=== PATIENT | male | born 1980 | race Caucasian/White ===

== ENCOUNTER 2020-12-28 13:57 | Outpatient (REF) | payer BC, SELFPAY ==
--- NOTE | ~2020-12-28 | XR_ITS ---
EXAMINATION: XR KNEE, LEFT CLINICAL INFORMATION: Pain; question osteoarthritis. COMPARISON: None TECHNIQUE: AP, lateral, tunnel, and sunrise views of the left knee. FINDINGS: Bones and soft tissues are normal. No fracture or dislocation. There is a small joint effusion. Alignment is anatomic. Joint spaces are well maintained. No abnormal soft tissue calcification. XR/XR knee LT 4V IMPRESSION: 1. No left knee fracture, dislocation or unusual degenerative change is seen. 2. There is a small left knee joint effusion.
== END 2020-12-28 13:58 | disposition home or self-care (01) ==
LOC: HO.XRAY 13:57
PROVIDERS: PCP Internal Medicine; Visit Provider Internal Medicine
DX: M25.562 Pain in left knee (principal)
CPT/HCPCS: 73564

== ENCOUNTER 2021-09-05 11:09 | Outpatient (REF) | payer BC, SELFPAY ==
[2021-09-05 13:59] LABS: MANUAL DIFF FLAG NO
[2021-09-05 14:05] LABS: Basophils Absolute Auto 0.1 X10*3/uL (0.0-0.2); Basophils Percent Auto 0.6 % (0-2); Eosinophils Absolute Auto 0.2 X10*3/uL (0.0-0.4); Eosinophils Percent Auto 2.9 % (0-4); Hematocrit 45.6 % (42.0-52.0); Hemoglobin 14.7 g/dl (14.0-18.0); Imm Gran Abs Auto 0.02 X10*3/uL (0.00-0.03); Imm Gran Pct Auto 0.3 % (0.0-0.4); Lymphocytes Percent Auto 25.3 % (20-40); Mean Corpuscular HGB Conc 32.2 g/dl (31.0-36.0); Mean Corpuscular Volume 83.7 fL (80.0-98.0); Mean Platelet Volume 9.7 fL (9.4-12.4); Monocytes Absolute Auto 0.6 X10*3/uL (0.1-1.2); Monocytes Percent Auto 7.3 % (2-11); Neutrophils Percent Auto 63.6 % (45-73); Platelet Count 400 X10*3/uL (160-400); Red Blood Count 5.45 X10*6/uL (4.60-5.80); Red Cell Distribution Width 13.3 % (11.0-16.0); White Blood Count 7.9 X10*3/uL (4.8-10.8)
[2021-09-05 14:31] LABS: Anion Gap 13 (12-20); Blood Urea Nitrogen 19 mg/dL (9-16); C Reactive Protein 0.22 mg/dL (< or = 0.50); Calcium 10.1 mg/dL (8.4-10.2); Carbon Dioxide 29 mmol/L (22-29); Chloride 103 mmol/L (96-108); Estimated Glomerular Filt Rate > 60; Glucose Random 95 mg/dL (60-115); Potassium 4.4 mmol/L (3.3-5.1); Sodium 141 mmol/L (135-145); Uric Acid 5.9 mg/dL (3.4-7.0)
[2021-09-05 14:53] LABS: Free T4 (Free Thyroxine) 1.22 ng/dL (0.71-1.85)
== END 2021-09-05 11:10 | disposition home or self-care (01) ==
LOC: HO.10HDL 11:09
PROVIDERS: Visit Provider Internal Medicine
DX: M79.672 Pain in left foot (principal); R63.5 Abnormal weight gain
CPT/HCPCS: 36415; 80048; 84439; 84443; 84550; 85025; 86140

== ENCOUNTER 2021-09-09 09:52 | Outpatient (REF) | payer BC, SELFPAY ==
--- NOTE | ~2021-09-09 | XR_ITS ---
EXAMINATION: XR FOOT, LEFT CLINICAL INFORMATION: Left foot pain COMPARISON: None TECHNIQUE: AP, lateral, and oblique views of the left foot. FINDINGS: There is an os trigonum. The bones joints and soft tissues are otherwise unremarkable. XR/XR foot LT min 3V IMPRESSION: Normal left foot.
== END 2021-09-09 09:53 | disposition home or self-care (01) ==
LOC: HO.XRAY 09:52
PROVIDERS: PCP Internal Medicine; Visit Provider Internal Medicine
DX: M79.672 Pain in left foot (principal); R63.5 Abnormal weight gain
CPT/HCPCS: 73630

== ENCOUNTER 2021-11-08 18:09 | Outpatient (REF) | payer BC, SELFPAY ==
--- NOTE | ~2021-11-08 | MR_ITS ---
EXAMINATION: MR KNEE WITHOUT CONTRAST, LEFT CLINICAL INFORMATION: Pain, rule out torn meniscus. COMPARISON: None TECHNIQUE: MRI of the knee without contrast was performed using routine sequences on a high-field scanner. FINDINGS: MENISCI: Medial Meniscus: Horizontal signal extending to the free edge in the mid/posterior aspect of the body and the medial aspect of the posterior horn, suspicious for tear. Lateral Meniscus: Intact LIGAMENTS: Cruciate: Intact Collateral: Intact EXTENSOR MECHANISM: Intact ARTICULAR CARTILAGE/BONE: No significant cartilage loss. Marrow signal is within normal limits. No fracture. JOINT FLUID AND BURSA: No significant effusion. Small Saldivar's cyst. MR/MR knee LT wo con IMPRESSION: Findings suspicious for a tear in the body and the medial aspect of the posterior horn of the medial meniscus. Small Saldivar's cyst.
== END 2021-11-08 18:10 | disposition home or self-care (01) ==
LOC: HO.MRI 18:09
PROVIDERS: PCP Internal Medicine; Visit Provider Internal Medicine
DX: M25.562 Pain in left knee (principal)
CPT/HCPCS: 73721

== ENCOUNTER 2023-02-10 10:20 | Outpatient (REF) | payer BC, SELFPAY ==
[2023-02-12 15:53] LABS: A. Phagocytphilium DNA,RT-PCR NOT DETECTED (NOT DETECTED); Babesia Microti DNA, RT-PCR NOT DETECTED (NOT DETECTED); Borrelia Miyamotoi,DNA RT-PCR NOT DETECTED (NOT DETECTED); E.Chaffeensis DNA RT-PCR NOT DETECTED (NOT DETECTED); Lyme(Borrelia ssp)DNA RT-PCR DETECTED (NOT DETECTED)
[2023-02-13 15:13] LABS: Lyme Blot 5.01 index
[2023-02-21 13:35] LABS: 18 KD (IgG) Band NON-REACTIVE; 23 KD (IgG) Band REACTIVE; 23 KD (IgM) Band REACTIVE; 28 KD (IgG) Band NON-REACTIVE; 30 KD (IgG) Band NON-REACTIVE; 39 KD (IgM) Band REACTIVE; 39KD (IgG) Band NON-REACTIVE; 41 KD (IgM) Band REACTIVE; 41KD (IgG) Band REACTIVE; 45 KD (IgG) Band NON-REACTIVE; 58 KD (IgG) Band NON-REACTIVE; 66 KD (IgG) Band NON-REACTIVE; 93 KD (IgG) Band NON-REACTIVE; Lyme IgG Blot Interp NEGATIVE (NEGATIVE); Lyme IgM Blot Interp POSITIVE (NEGATIVE)
[2023-02-21 13:37] LABS: Lyme Abs Screen POSITIVE
== END 2023-02-10 10:21 | disposition home or self-care (01) ==
LOC: HO.LAB 10:20
PROVIDERS: PCP Internal Medicine; Visit Provider Internal Medicine
DX: T14.8XXA Other injury of unspecified body region, initial encounter (principal); W57.XXXA Bitten or stung by nonvenomous insect and other nonvenomous arthropods, initial encounter; Y93.9 Activity, unspecified; Y92.9 Unspecified place or not applicable; Y99.9 Unspecified external cause status; Z20.2 Contact with and (suspected) exposure to infections with a predominantly sexual mode of transmission
CPT/HCPCS: 36415; 86617; 86618; 87798; 87801

== ENCOUNTER 2025-03-20 16:24 | Outpatient (AMB) | payer BC, SELFPAY ==
--- NOTE | 2025-03-20 16:26 | A.OFFPC_ITS ---
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 Accompanied by: Self / Same As Patient Allergies No Known Allergies Allergy (Unverified 03/20/25 16:26) Medication List - Last Reconciled 03/20/25 by CHAN Perez albuterol sulfate 90 mcg/actuation (Ventolin HFA) 2 puffs inhalation Q4-6H PRN trazodone 25 - 50 mg (0.5 - 1 x 50 mg) PO BEDTIME PRN Tobacco use date assessed: 03/20/25 Dental Screening Dental Screen Date: 03/20/25 Did you have a dental visit in the last 12 months?: Yes Did you have a dental problem in the last 6 months where you did not have access to dental care?: No Was dental information given to patient?: No HPI HPI Comments History of Present Illness Details 44-year-old male with history of asthma presents to the office today to establish care and for management of chronic conditions as well as annual physical exam. Lives with and daughter, and feels safe there. 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 Uses nicotine patches, never used cigarettes. No drugs including MJ. History of excessive alcohol consumption to help with coping. Now socially- drinks about 3-4 in a sitting typically on weekends. Mild intermittent asthma-no difficulty breathing. Typically triggered by seasonal allergies and change of season. Using albuterol as needed, several times per week or not at all. Severe obesity-BMI 36.8. Acknowledges unhealthy diet. Goal to return to the gym and is working on improving diet. History of thyroid nodule- last U/S about 10+ years ago and had resolved daughter having surgery through growth plate tib fib, not healing correctly. getting help and down. going to need- thursday, working thursday. surgery is apr 21. works - taking off. return to work . Will need work note Concerns: trouble falling asleep ongoing x2 years. 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 No sore throat, nasal congestion, rhinorrhea, sinus pain, ear pain. No hearing loss Neck - no adenopathy Cardiovascular: No chest pain, palpitations, or leg edema Respiratory: No shortness of breath, wheezing, cough GI: No dysphagia, odynophagia, globus sensation. No abdominal pain, nausea, vomiting, diarrhea, constipation, melena, hematochezia : No dysuria, hematuria, increased urinary frequency, decreased urinary output. No testicular swelling or pain. No penile discharge MSK: No myalgia, back pain, arthralgias Neuro: No headaches, weakness, paresthesias Psych: no depression/anxiery. No AH/VH. No SI/HI Skin: No rashes or lesions EXAM: Constitutional - Awake and Alert, No apparent distress Eyes - PERRLA, EOMI. Anicteric Ears - external ears normal, canals clear, TMs intact and pearly rodriguez with good cone of light Nose- septum midline, nares clear, no sinus tenderness Mouth/throat- mucosa moist, tongue and uvula midline, no erythema/edema or tonsillar adenopathy. Neck-trachea midline, thyroid symmetric without palpable nodules, no adenopathy Cardiovascular - S1S2, RRR, No edema Respiratory - Normal lung expansion, Normal respiratory effort, No respiratory distress, CTA bilaterally Gastrointestinal - NT / ND; +BS; No rebound or guarding - No CVA tenderness Extremities - no calf tenderness bilaterally, no swelling Musculoskeletal - Normal inspection, normal ROM Skin - Warm/Dry, no concerning lesions Neurological - Alert & oriented x3, CN II-XII in tact, 5/5 strength BUE and BLE, 2+ patellar reflexes, sensation intact Psychological - Appropriate affect PFSH Medical History (Updated 03/25/25 @ 18:03 by CHAN Perez) History of migraine Severe obesity History of thyroid nodule Asthma Surgical History (Updated 03/20/25 @ 16:48 by CHAN Perez) S/P left knee arthroscopy Family History (Updated 03/20/25 @ 16:50 by CHAN Perez) Father Skin cancer Testicular cancer Mother ALS (amyotrophic lateral sclerosis) Glaucoma Maternal Grandfather CAD (coronary artery disease) Alzheimer dementia Paternal Grandfather Parkinson disease Social History Housing: House Patient Tobacco Use Status: Never used Tobacco service: No Current occupational status: employed Cognitive needs: No Hearing needs: No Vision needs: Yes (PRN distance) Questionnaire PHQ-9 Over the last 2 weeks, how often have you been bothered by any of the following problems? 1. Little interest or pleasure in doing things: not at all 2. Feeling down, depressed, or hopeless: not at all 3. Trouble falling or staying asleep, or sleeping too much: more than half the days 4. Feeling tired or having little energy: several days 5. Poor appetite or overeating: more than half the days 6. Feeling bad about yourself - or that you are a failure or have let yourself or your family down: not at all 7. Trouble concentrating on things, such as reading the newspaper or watching television: not at all 8. Moving or speaking so slowly that other people could have noticed. Or the opposite - being so fidgety or restless that you have been moving around a lot more than usual: not at all 9. Thoughts that you would be better off or of hurting yourself in some way: not at all Total score: 5 Source: Developed by Drs. Scot Flynn, Grace Martell, Ángel Melgar and colleagues, with an educational corinne from [employer]. Thrive Questionnaire Date Thrive assessed: 03/20/25 I am a: Patient What is your living situation today?: I have a steady place to live Within the past 12 months, did the food you bought not last and you didn't have the money to get more?: Never true Within the past 12 months, did you worry whether your food would run out before you got money to buy more?: Never true Do you have trouble paying for medicines?: No Do you have trouble getting transportation to medical appointments?: No Do you have trouble paying your heating and electricity bill?: No Do you have trouble taking care of your child, family member or friend?: No Do you have trouble with day-to-day activities such as bathing, preparing meals, shopping, managing finances, etc.?: No Are you currently unemployed and looking for a job?: No Are you interested in more education?: No Please select the resources that you would like help with: None THRIVE Score: 0 CORY-7 AMB Questionnaire CORY-7 Date CORY - 7 assessed: 03/20/25 Feeling nervous, anxious, or on edge: 1 = Several days Not being able to stop or control worryin = Several days Worrying too much about different things: 1 = Several days Trouble relaxin = Several days Being so restless that it is hard to sit still: 0 = Not at all Becoming easily annoyed or irritable: 1 = Several days Feeling afraid as if something awful might happen: 1 = Several days Total CORY-7 score (0-4 normal; 5-9 mild; 10-14 moderate; 15-21 severe): 6 Source: Developed by Drs. Scot Flynn, Grace Martell, Ángel Melgar and colleagues, with an educational corinne from [employer]. Physical exam (Primary Care) Vital Signs: Last Vital Signs Temp 98.0 F 03/20/25 16:30 Pulse 89 03/20/25 16:30 Resp 16 03/20/25 16:30 BP 134/96 H 03/20/25 16:30 Pulse Ox 98 03/20/25 16:30 BMI result Body Mass Index 36.8 Tobacco/Smoking Status: Tobacco use Status Tobacco use date assessed 03/20/25 03/20/25 16:32 Patient Tobacco Use Status Never used Tobacco 03/20/25 16:32 Tobacco use type 03/20/25 16:32 PHQ-9: PHQ-9 Score PHQ-9: Total score 5 03/20/25 16:37 Thrive Assessment: Date of Thrive Assessment Date Thrive assessed 03/20/25 03/20/25 16:34 Coding Level of Care Code New Pt Prev Care 40-64y([id number]) Diagnoses Encounter for routine history and physical examination Z00.00 Migraine headache G43.909 Asthma J45.909 Severe obesity E66.01 Nodule of skin of neck R22.1 Insomnia G47.00 Assessment & Plan Assessment & Plan (1) Encounter for routine history and physical examination: Code(s): Z00.00 - Encounter for general adult medical examination without abnormal findings Plan: Plan as below (2) Migraine headache: Comment: 1-2 times monthly. occ aura Code(s): G43.909 - Migraine, unspecified, not intractable, without status migrainosus Category: Medical Plan: stable (3) Asthma: Code(s): J45.909 - Unspecified asthma, uncomplicated Category: Medical Plan: Referred for PFT given work history. Continue inhalers (4) Severe obesity: Code(s): E66.01 - Morbid (severe) obesity due to excess calories Category: Medical Plan: Weight loss efforts encouraged. Recommend healthier diet as discussed and increased regular exercise with resistance (5) Nodule of skin of neck: Code(s): R22.1 - Localized swelling, mass and lump, neck Category: Medical Plan: Monitor for now (6) Insomnia: Code(s): G47.00 - Insomnia, unspecified Category: Medical Plan: Trial trazodone. Sleep hygeine Plan Routine screening labs as ordered below Continue with screening colonoscopies and PSA Continue following for annual skin exams and use sun protection Annual eye exams Wear seat belt in car Recommend regular exercise and healthy diet Follow up in 1 year Orders: Orders Basic Metabolic Panel 03/20/25 R25.2 - Cramp and spasm, Z00.00 - Encounter for general adult medical examination without abnormal findings Hemoglobin A1c 03/20/25 R25.2 - Cramp and spasm, Z00.00 - Encounter for general adult medical examination without abnormal findings Vitamin D 25-OH Total 03/20/25 R25.2 - Cramp and spasm, Z00.00 - Encounter for general adult medical examination without abnormal findings TSH reflex Free T4 03/20/25 R25.2 - Cramp and spasm, Z00.00 - Encounter for gen eral adult medical examination without abnormal findings PFT pulmonary function test 03/20/25 J45.909 - Unspecified asthma, uncomplicated, X02.1XXS - Exposure to smoke in controlled fire in building or structure, sequela Complete Blood Count Auto Diff 03/20/25 R25.2 - Cramp and spasm, Z00.00 - Encounter for general adult medical examination without abnormal findings Lipid Panel 03/20/25 R25.2 - Cramp and spasm, Z00.00 - Encounter for general adult medical examination without abnormal findings Liver Panel 03/20/25 R25.2 - Cramp and spasm, Z00.00 - Encounter for general adult medical examination without abnormal findings Vitamin B12 03/20/25 R25.2 - Cramp and spasm, Z00.00 - Encounter for general adult medical examination without abnormal findings Medications: New trazodone 25 - 50 mg (0.5 - 1 x 50 mg) PO BEDTIME PRN 90 tabs 0RF sleep albuterol sulfate 90 mcg/actuation (Ventolin HFA) 2 puffs inhalation Q4-6H PRN 8.5 grams 1RF shortness of breath or wheezing
[2025-03-20 16:30] VITALS: BP 134/96; PULSE 89; RESP 16; TEMP 36.7; O2SAT 98; BMI 36.8
== END 2025-03-20 17:08 | disposition home or self-care (01) ==
LOC: HO.HMCHD 16:24
PROVIDERS: PCP Internal Medicine; Visit Provider Physician Assistant
DX: Z00.00 Encounter for general adult medical examination without abnormal findings (principal); G43.909 Migraine, unspecified, not intractable, without status migrainosus; J45.909 Unspecified asthma, uncomplicated; E66.01 Morbid (severe) obesity due to excess calories; R22.1 Localized swelling, mass and lump, neck; G47.00 Insomnia, unspecified

== ENCOUNTER 2025-05-31 08:48 | Outpatient (REF) | payer BC, SELFPAY ==
--- NOTE | 2025-05-31 08:52 | PFT_ITS ---
Flows: FEV1: 119 % of predicted at 5.23 L FVC: 121 % of predicted at 6.73 L FEV1/FVC: 78 % Bronchodilator response: Absent Volumes: Total lung capacity: 105 % of predicted at 8.07 L Residual volume: 102 % of predicted at 1.82 L Slow vital capacity: 106 % of predicted at 6.25 L Expiratory reserve volume: 45 % of predicted at 0.78 L Diffusion capacity: Normal Impression: No obstructive or restrictive ventilatory defect. No bronchodilator response. Decreased expiratory reserve volume suggests extrathoracic restriction likely secondary to abdominal obesity. MTDD
[2025-05-31 09:35] VITALS: PULSE 75
== END 2025-05-31 08:49 | disposition home or self-care (01) ==
LOC: HO.RESP 08:48
PROVIDERS: PCP Physician Assistant; Visit Provider Physician Assistant
DX: J45.909 Unspecified asthma, uncomplicated (principal); X02.1XXS Exposure to smoke in controlled fire in building or structure, sequela
CPT/HCPCS: 94060; 94640; 94727; 94729

== ENCOUNTER → 2025-05-31 08:52 | Outpatient (BNV) | payer BC, SELFPAY | PROVIDERS: PCP Physician Assistant; Visit Provider Internal Medicine Pulmonary Disease | DX: J45.909 Unspecified asthma, uncomplicated (principal) | CPT/HCPCS: 94060; 94727; 94729 ==